=== PATIENT | male | born 2000 | race Caucasian/White ===

== ENCOUNTER 2022-06-29 10:35 | Inpatient (IN) | payer MEDICARE, MEDICAID ==
[~2022-06-29] VITALS: Ht 175.3 cm; Wt 79.5 kg
[2022-06-29] MEDS ORDERED: traZODone 50 MG TAB PO PRN (15:25)
[2022-06-29] MEDS ORDERED: hydrOXYzine 50 MG TAB PO PRN (15:25)
[2022-06-29] MEDS ORDERED: ACETAMINOPHEN TAB 650MG DOSE (2X325MG) PO PRN (15:25)
[2022-06-29] MEDS ORDERED: MOM 30ML SUSPENSION UDC PO PRN (15:25)
[2022-06-29] MEDS ORDERED: MAALOX 30 ML SUSP *UDC PO PRN (15:25)
[2022-06-29] MEDS ORDERED: MOME0.1O3 TOP (15:59)
[2022-06-29] MEDS ORDERED: TRIA25CR TOP (15:59)
[2022-06-29] MEDS ORDERED: KETO2CR TOP (15:59)
[2022-06-29] MEDS ORDERED: CLOB0.057 TOP (16:02)
[2022-06-29] MEDS ORDERED: CLIN1LOT TOP (16:02)
[2022-06-29 16:25] VITALS: BP 119/70
[2022-06-29 16:25] LABS: RSV AMPLIFICATION NEGATIVE (NEGATIVE)
[2022-06-29 21:54] LABS: BASO % 0.3 % (0.0-1.0); EOS # 0.1 10^3/uL (0.0-0.5); EOS % 0.8 % (0.0-3.0); HEMATOCRIT 40.5 % (42.0-52.0); HEMOGLOBIN 13.5 g/dl (13.5-17.5); LYMPH # 2.9 10^3/uL (1.5-5.0); LYMPH % 28.1 % (24.0-44.0); MEAN CORPUSCULAR HEMOGLOBIN 28.7 pg (27.0-33.0); MEAN CORPUSCULAR HGB CONC 33.3 g/dl (32.0-36.5); MEAN CORPUSCULAR VOLUME 86.2 fl (80.0-96.0); MONO # 0.6 10^3/uL (0.0-0.8); MONO % 5.6 % (2.0-8.0); NEUTROPHILS # 6.6 10^3/uL (1.5-8.5); NEUTROPHILS % 64.9 % (36.0-66.0); PLATELET COUNT, AUTOMATED 285 10^3/uL (150-450); WHITE BLOOD COUNT 10.1 10^3/uL (4.0-10.0)
[2022-06-29] MEDS ORDERED: DICYCLOMINE 10 MG CAP PO PRN (22:00)
[2022-06-29] MEDS ORDERED: GI COCKTAIL 50ML BTL(HYOSCYAMINE/MAALOX/LIDOCAINE VISCOUS)(1:3:1) PO ONE (22:00)
[2022-06-29 22:14] LABS: LIPASE 40 U/L (12-53)
[2022-06-29 22:16] LABS: BLOOD UREA NITROGEN 15 MG/DL (9-23); CALCIUM LEVEL 9.6 MG/DL (8.5-10.1); CARBON DIOXIDE LEVEL 28 MMOL/L (20-31); CHLORIDE LEVEL 106 MMOL/L (98-107); CREATININE FOR GFR 0.75 MG/DL (0.70-1.30); GLOMERULAR FILTRATION RATE > 60.0 (>60); GLUCOSE, FASTING 91 MG/DL (60-100); POTASSIUM SERUM 4.2 MMOL/L (3.5-5.1); SODIUM LEVEL 141 MMOL/L (136-145)
[2022-06-30 06:42] VITALS: BP 112/66
[2022-06-30] MEDS ORDERED: INFLUENZA QUADRIVALENT PF VACCINE 0.5ML SYRINGE IM.IMMUN ONE (10:00)
[2022-06-30] MEDS ORDERED: GI COCKTAIL 50ML BTL(HYOSCYAMINE/MAALOX/LIDOCAINE VISCOUS)(1:3:1) PO ONE (11:00)
[2022-06-30] MEDS: DULoxetine 20MG CAP (CYMBALTA) PO SCH (16:04)
[2022-06-30] MEDS ORDERED: DESI13CR2 TOP (17:47)
[2022-06-30] MEDS ORDERED: BENZ10LI12 TOP (17:47)
[2022-06-30] MEDS ORDERED: KETO2SHA8 TOP (17:47)
[2022-06-30 18:18] VITALS: BP 112/66
[2022-06-30] MEDS ORDERED: HOME MED LIST COMPLETE! XX SCH (18:45)
[2022-07-01 06:39] VITALS: BP 97/56
[2022-07-01] MEDS: DULoxetine 20MG CAP (CYMBALTA) PO SCH (09:46)
[2022-07-01] MEDS: DICLOFENAC EPOLAMINE 1.3% PATCH TOP SCH ×2 (12:03→21:00)
[2022-07-01 17:49] VITALS: BP 116/74
[2022-07-02 07:02] VITALS: BP 130/81
[2022-07-02] MEDS: DICLOFENAC EPOLAMINE 1.3% PATCH TOP SCH ×2 (08:10→21:00)
[2022-07-02] MEDS: DULoxetine 20MG CAP (CYMBALTA) PO SCH (08:10)
[2022-07-02] MEDS ORDERED: ONDANSETRON 4MG TAB PO PRN (08:30)
[2022-07-02] MEDS ORDERED: CLOBETASOL PROP 0.05% OINT 30 GM TOP PRN (08:40)
[2022-07-02] MEDS ORDERED: TRIAMCINOLONE ACETONIDE 0.025% 80GM CREAM TOP PRN (08:45)
[2022-07-02] MEDS: CLINDAMYCIN TOP 1% SOLN 60ML BTL TOP SCH ×2 (09:00→21:00)
[2022-07-02] MEDS: DIAPER RELIEF PASTE (DESITIN) 60GM TOP SCH (09:00)
[2022-07-02 18:00] VITALS: BP 142/78
[2022-07-02 21:20] VITALS: BP 142/78
[2022-07-03 06:17] VITALS: BP 101/60
[2022-07-03] MEDS: DICLOFENAC EPOLAMINE 1.3% PATCH TOP SCH ×2 (07:56→21:00)
[2022-07-03] MEDS: DIAPER RELIEF PASTE (DESITIN) 60GM TOP SCH (07:58)
[2022-07-03] MEDS: CLINDAMYCIN TOP 1% SOLN 60ML BTL TOP SCH ×2 (07:58→21:00)
[2022-07-03] MEDS: DULoxetine 20MG CAP (CYMBALTA) PO SCH (07:58)
[2022-07-03 16:22] VITALS: BP 125/68
[2022-07-04 07:05] VITALS: BP 118/81
[2022-07-04] MEDS: DIAPER RELIEF PASTE (DESITIN) 60GM TOP SCH (07:57)
[2022-07-04] MEDS: CLINDAMYCIN TOP 1% SOLN 60ML BTL TOP SCH (07:57)
[2022-07-04] MEDS: DICLOFENAC EPOLAMINE 1.3% PATCH TOP SCH (07:58)
[2022-07-04] MEDS: DULoxetine 20MG CAP (CYMBALTA) PO SCH (07:59)
[2022-07-04] MEDS ORDERED: CYMB1CAP4 PO (10:53)
[2022-07-04] MEDS ORDERED: HYDR50TA70 PO (10:53)
[2022-07-04] MEDS ORDERED: ABIL1TAB11 PO (10:53)
[2022-07-04] MEDS ORDERED: ONDA-83 PO (10:53)
[2022-07-04] MEDS ORDERED: DICY1CAP8 PO (10:53)
== END 2022-07-04 13:04 | disposition home or self-care (01) | DRG 885 ==
LOC: M ED 10:35 → M ED INP 15:21 → M PSY 16:20
PROVIDERS: ADMIT Psychiatry & Neurology Psychiatry; ATTEND Psychiatry & Neurology Psychiatry
DX: F31.81 Bipolar II disorder (principal); R45.851 Suicidal ideations; F41.9 Anxiety disorder, unspecified; F60.3 Borderline personality disorder; F90.9 Attention-deficit hyperactivity disorder, unspecified type; F64.9 Gender identity disorder, unspecified; Z59.9 Problem related to housing and economic circumstances, unspecified; Z79.899 Other long term (current) drug therapy; E11.9 Type 2 diabetes mellitus without complications; K76.0 Fatty (change of) liver, not elsewhere classified; J45.909 Unspecified asthma, uncomplicated; G43.909 Migraine, unspecified, not intractable, without status migrainosus; M79.7 Fibromyalgia; L40.8 Other psoriasis

== ENCOUNTER → 2023-08-07 | Outpatient (REF) | payer OTHER ==
[~2023-08-07] MED LIST: ABIL1TAB11 PO; BENZ10LI12 TOP; CLIN1LOT TOP; CLOB0.057 TOP; CYMB1CAP4 PO; DESI13CR2 TOP; DICY1CAP8 PO; HYDR50TA70 PO; KETO2CR TOP; KETO2SHA8 TOP; MOME0.1O3 TOP; ONDA-83 PO; TRIA25CR TOP
[2023-08-07 15:57] LABS: FERRITIN 29.8 NG/ML (10.5-307.3)
[2023-08-07 15:59] LABS: PERCENT SATURATION 15.7 % (19.7-50.0)
== END ==
LOC: M LAB REF 13:51
PROVIDERS: ATTEND Nurse Practitioner Family
DX: Z98.84 Bariatric surgery status (principal)

== ENCOUNTER 2023-08-29 16:56 | Emergency (ER) | payer MEDICARE, OTHER ==
[~2023-08-29] VITALS: Ht 170.2 cm; Wt 70.9 kg
[2023-08-29] MEDS: LIDOCAINE W/EPINEPHRINE 1% 20ML VIAL SC ONE (19:15)
[2023-08-29] MEDS: BOOSTRIX VACCINE (TETANUS/DIPHTH/ACEL. PERTUSSIS) 0.5ML SYR IM.IMMUN ONE (19:21)
[2023-08-29 19:52] VITALS: BP 117/69; TEMP 98.4; O2SAT 99
[2023-08-29] MEDS: BACITRACIN OINTMENT 30GM TUBE TOP ONE (20:14)
== END 2023-08-29 20:19 | disposition home or self-care (01) ==
LOC: EDSEX → EDBD 16:56 → M ED 16:56
DX: S81.812A Laceration without foreign body, left lower leg, initial encounter (principal); W26.0XXA Contact with knife, initial encounter; Y92.009 Unspecified place in unspecified non-institutional (private) residence as the place of occurrence of the external cause; Y93.89 Activity, other specified; Y99.9 Unspecified external cause status; Z23 Encounter for immunization

== ENCOUNTER 2023-09-06 14:17 | Inpatient (IN) | payer OTHER, MEDICARE ==
[~2023-09-06] VITALS: Ht 170.2 cm; Wt 67.4 kg
[2023-09-06] MEDS ORDERED: ISOVUE-370 76% 100ML VIAL As Ordered ONE (14:38)
[2023-09-06 14:50] LABS: BASO % 0.4 % (0.0-1.0); EOS % 0.7 % (0.0-3.0); HEMATOCRIT 37.2 % (42.0-52.0); HEMOGLOBIN 12.5 g/dl (13.5-17.5); LYMPH # 1.6 10^3/uL (1.5-5.0); LYMPH % 28.7 % (24.0-44.0); MEAN CORPUSCULAR HGB CONC 33.6 g/dl (32.0-36.5); MEAN CORPUSCULAR VOLUME 89.2 fl (80.0-96.0); MONO # 0.3 10^3/uL (0.0-0.8); NEUTROPHILS # 3.7 10^3/uL (1.5-8.5); PLATELET COUNT, AUTOMATED 253 10^3/uL (150-450); RED BLOOD COUNT 4.17 10^6/uL (4.30-6.10); WHITE BLOOD COUNT 5.6 10^3/uL (4.0-10.0)
[2023-09-06 15:03] LABS: INR 1.17; PARTIAL THROMBOPLASTIN TIME 27.1 SECONDS (24.8-34.2); PROTHROMBIN TIME 14.5 SECONDS (12.5-14.5)
[2023-09-06] MEDS: ONDANSETRON 4MG 2ML VIAL IV ONE (16:07)
[2023-09-06 16:20] LABS: ALBUMIN 4.3 G/DL (3.2-5.2); ALKALINE PHOSPHATASE 65 U/L (46-116); ALT/SGPT 52 U/L (7.0-40); AST/SGOT 53 U/L (<34); BILIRUBIN,DIRECT 0.2 MG/DL (<0.4); BILIRUBIN,TOTAL 0.8 MG/DL (0.3-1.2); BLOOD UREA NITROGEN 8 MG/DL (9-23); CALCIUM LEVEL 8.5 MG/DL (8.5-10.1); CARBON DIOXIDE LEVEL 27 MMOL/L (20-31); CHLORIDE LEVEL 103 MMOL/L (98-107); CK-MB VALUE MASS < 1.0 NG/ML (<3.6); CPK CREATINE PHOSPHOKINASE 138 U/L (46-171); CREATININE FOR GFR 0.69 MG/DL (0.70-1.30); FREE T4 1.25 NG/DL (0.89-1.76); GLOMERULAR FILTRATION RATE > 60.0 (>60); GLUCOSE, FASTING 81 MG/DL (60-100); MB/CK RELATIVE INDEX 0.72 (< OR =4); POTASSIUM SERUM 5.5 MMOL/L (3.5-5.1); SODIUM LEVEL 136 MMOL/L (136-145); THYROID STIMULATING HORMONE 0.697 uIU/ML (0.55-4.78); TOTAL PROTEIN 6.8 G/DL (5.7-8.2)
[2023-09-06 16:40] LABS: RSV AMPLIFICATION NEGATIVE (NEGATIVE)
[2023-09-06] MEDS: ASPIRIN 325 MG TAB PO ONE (18:03)
[2023-09-06] MEDS ORDERED: MOM 30ML SUSPENSION UDC PO PRN (18:25)
[2023-09-06] MEDS ORDERED: HOME MED LIST COMPLETE! XX SCH (18:45)
[2023-09-06 19:22] LABS: C REACTIVE PROTEIN QUANTITATIV < 0.40 MG/DL (<1.0)
[2023-09-06 19:24] LABS: CHOLESTEROL LEVEL 133 MG/DL (<200); CHOLESTEROL RISK RATIO 2.85 (<5); HDL CHOLESTEROL 46.6 MG/DL (>40); LDL CHOLESTEROL 73.8 MG/DL (<100); NON-HDL-C 86.4 MG/DL; TRIGLYCERIDES LEVEL 63 MG/DL (<150)
[2023-09-06 19:43] LABS: INR 1.2; PARTIAL THROMBOPLASTIN TIME 28.4 SECONDS (24.8-34.2); PROTHROMBIN TIME 14.9 SECONDS (12.5-14.5)
[2023-09-06 21:17] VITALS: BP 121/64; TEMP 97.5; O2SAT 96
[2023-09-06] MEDS: ENOXAPARIN 40MG/0.4ML SYRINGE (J1650 PER 10MG) SC SCH (21:50)
[2023-09-06] MEDS: DOCUSATE SODIUM 100MG CAPSULE PO SCH (21:50)
[2023-09-07 02:06] VITALS: BP 104/60; TEMP 97.9; O2SAT 99
[2023-09-07 05:57] VITALS: BP 106/60; TEMP 97.7; O2SAT 100
[2023-09-07 06:59] LABS: HEMATOCRIT 37.2 % (36.0-47.0); HEMOGLOBIN 12.5 g/dl (12.0-15.5); MEAN CORPUSCULAR HEMOGLOBIN 30.1 pg (27.0-33.0); MEAN CORPUSCULAR HGB CONC 33.6 g/dl (32.0-36.5); MEAN CORPUSCULAR VOLUME 89.6 fl (80.0-96.0); PLATELET COUNT, AUTOMATED 224 10^3/uL (150-450); RED BLOOD COUNT 4.15 10^6/uL (4.00-5.40)
[2023-09-07 07:21] LABS: BLOOD UREA NITROGEN 11 MG/DL (9-23); CALCIUM LEVEL 9.5 MG/DL (8.5-10.1); CARBON DIOXIDE LEVEL 30 MMOL/L (20-31); CHLORIDE LEVEL 105 MMOL/L (98-107); CREATININE FOR GFR 0.83 MG/DL (0.55-1.30); GLOMERULAR FILTRATION RATE > 60.0 (>60); GLUCOSE, FASTING 77 MG/DL (60-100); POTASSIUM SERUM 3.6 MMOL/L (3.5-5.1); SODIUM LEVEL 141 MMOL/L (136-145)
[2023-09-07] MEDS: ASPIRIN 81MG CHEW TABLET PO SCH (08:06)
[2023-09-07] MEDS: INFLUENZA QUADRIVALENT PF VACCINE 0.5ML SYRINGE IM.IMMUN ONE (12:24)
[2023-09-07 14:00] VITALS: BP 113/69; TEMP 97.9; O2SAT 96
[2023-09-07 14:29] LABS: HEMOGLOBIN A1c 4.8 % (4.0-6.0)
[2023-09-07 20:50] VITALS: BP 111/67; TEMP 98.4; O2SAT 96
[2023-09-08 05:10] VITALS: BP 106/64; TEMP 97.5; O2SAT 96
[2023-09-08] MEDS ORDERED: ASPI81CH8 PO (10:09)
== END 2023-09-08 11:18 | disposition home or self-care (01) | DRG 69 ==
LOC: EDBD 14:17 → EDSEX 14:17 → M ED 14:17 → M ED INP 18:31 → ENRESERV 19:48 → M MSPAV 21:19
PROVIDERS: ADMIT Student in an Organized Health Care Education/Training Program; ATTEND Student in an Organized Health Care Education/Training Program
DX: G45.9 Transient cerebral ischemic attack, unspecified (principal); R91.8 Other nonspecific abnormal finding of lung field; M99.53 Intervertebral disc stenosis of neural canal of lumbar region; J44.9 Chronic obstructive pulmonary disease, unspecified; J45.909 Unspecified asthma, uncomplicated; M79.7 Fibromyalgia; E03.9 Hypothyroidism, unspecified; F32.A Depression, unspecified; E11.9 Type 2 diabetes mellitus without complications; L40.8 Other psoriasis; G43.909 Migraine, unspecified, not intractable, without status migrainosus; H40.9 Unspecified glaucoma; K76.0 Fatty (change of) liver, not elsewhere classified; Z88.6 Allergy status to analgesic agent; F41.9 Anxiety disorder, unspecified; E28.2 Polycystic ovarian syndrome; F12.90 Cannabis use, unspecified, uncomplicated

== ENCOUNTER 2023-09-11 22:13 | Inpatient (IN) | payer MEDICARE, OTHER ==
[~2023-09-11] VITALS: Ht 177.8 cm; Wt 71.4 kg
[~2023-09-11 22:13] MED LIST changes: +ASPI81CH8 PO
[2023-09-11 22:41] VITALS: BP 111/65; TEMP 98.1; O2SAT 96
[2023-09-11 22:52] LABS: BASO % 0.6 % (0.0-1.0); EOS # 0.1 10^3/uL (0.0-0.5); EOS % 0.9 % (0.0-3.0); HEMATOCRIT 34.6 % (36.0-47.0); HEMOGLOBIN 11.8 g/dl (12.0-15.5); LYMPH # 2.9 10^3/uL (1.5-5.0); LYMPH % 44.1 % (24.0-44.0); MEAN CORPUSCULAR HEMOGLOBIN 29.6 pg (27.0-33.0); MEAN CORPUSCULAR HGB CONC 34.1 g/dl (32.0-36.5); MEAN CORPUSCULAR VOLUME 86.7 fl (80.0-96.0); MONO # 0.5 10^3/uL (0.0-0.8); MONO % 7.1 % (2.0-8.0); NEUTROPHILS # 3.1 10^3/uL (1.5-8.5); PLATELET COUNT, AUTOMATED 242 10^3/uL (150-450); RED BLOOD COUNT 3.99 10^6/uL (4.00-5.40); WHITE BLOOD COUNT 6.6 10^3/uL (4.0-10.0)
[2023-09-11 23:05] LABS: INR 1.23; PARTIAL THROMBOPLASTIN TIME 29.4 SECONDS (24.8-34.2); PROTHROMBIN TIME 15.1 SECONDS (12.5-14.5)
[2023-09-11] MEDS ORDERED: ISOVUE-370 76% 100ML VIAL As Ordered ONE (23:11)
[2023-09-11 23:12] LABS: CK-MB VALUE MASS < 1.0 NG/ML (<3.6)
[2023-09-11 23:14] LABS: CPK CREATINE PHOSPHOKINASE 85 U/L (34-145); MB/CK RELATIVE INDEX 1.17 (< OR =4)
[2023-09-11 23:15] LABS: ALBUMIN 4.4 G/DL (3.2-5.2); ALKALINE PHOSPHATASE 78 U/L (46-116); ALT/SGPT 33 U/L (7.0-40); AST/SGOT 21 U/L (<34); BILIRUBIN,DIRECT 0.3 MG/DL (<0.4); BILIRUBIN,TOTAL 0.7 MG/DL (0.3-1.2); BLOOD UREA NITROGEN 13 MG/DL (9-23); CARBON DIOXIDE LEVEL 24 MMOL/L (20-31); CHLORIDE LEVEL 110 MMOL/L (98-107); CREATININE FOR GFR 0.76 MG/DL (0.55-1.30); GLOMERULAR FILTRATION RATE > 60.0 (>60); GLUCOSE, FASTING 78 MG/DL (60-100); MAGNESIUM LEVEL 2.1 MG/DL (1.8-2.4); POTASSIUM SERUM 3.1 MMOL/L (3.5-5.1); RSV AMPLIFICATION NEGATIVE (NEGATIVE); SODIUM LEVEL 139 MMOL/L (136-145); TOTAL PROTEIN 6.7 G/DL (5.7-8.2)
[2023-09-11 23:17] LABS: FREE T4 1.26 NG/DL (0.89-1.76); THYROID STIMULATING HORMONE 1.341 uIU/ML (0.55-4.78)
[2023-09-12] MEDS: levETIRAcetam INJection 500 MG in D5W MINI-BAG PLUS 100 ML IV ONE (00:09)
[2023-09-12] MEDS: NS 1,000 ML IV ONE (00:09)
[2023-09-12 00:21] LABS: ETHYL ALCOHOL (ETHANOL) 0.005 % (0.000-0.010)
[2023-09-12 00:23] LABS: SALICYLATE LEVEL < 3.0 MG/DL (<30)
[2023-09-12] MEDS: KCL 10MEQ/100ML SWI (KRUN) 10 MEQ in IV 1 EA IV SCH (00:28)
[2023-09-12] MEDS ORDERED: HOME MED LIST COMPLETE! XX SCH (01:30)
[2023-09-12] MEDS ORDERED: DEXTROSE 50% 50ML SYRINGE IV PRN (02:40)
[2023-09-12] MEDS ORDERED: GLUCOSE 4GM CHEW TABLET PO PRN (02:40)
[2023-09-12] MEDS ORDERED: GLUCAGON INJ 1MG VIAL SC PRN (02:40)
[2023-09-12 03:19] LABS: RHEUMATOID FACTOR QUANT 5.5 IU/ML (<14)
[2023-09-12 03:20] LABS: PROLACTIN 10.57 NG/ML
[2023-09-12 04:08] LABS: HEMOGLOBIN A1c 4.7 % (4.0-6.0)
[2023-09-12 05:43] VITALS: BP 120/74; TEMP 97.3; O2SAT 100
[2023-09-12 07:10] LABS: ALBUMIN 4.4 G/DL (3.2-5.2); ALKALINE PHOSPHATASE 79 U/L (46-116); ALT/SGPT 32 U/L (7.0-40); AST/SGOT 16 U/L (<34); BILIRUBIN,TOTAL 0.8 MG/DL (0.3-1.2); BLOOD UREA NITROGEN 11 MG/DL (9-23); CALCIUM LEVEL 8.7 MG/DL (8.5-10.1); CARBON DIOXIDE LEVEL 25 MMOL/L (20-31); CHLORIDE LEVEL 108 MMOL/L (98-107); CREATININE FOR GFR 0.63 MG/DL (0.55-1.30); GLOMERULAR FILTRATION RATE > 60.0 (>60); GLUCOSE, FASTING 68 MG/DL (60-100); MAGNESIUM LEVEL 2.1 MG/DL (1.8-2.4); POTASSIUM SERUM 3.9 MMOL/L (3.5-5.1); SODIUM LEVEL 142 MMOL/L (136-145); TOTAL PROTEIN 6.7 G/DL (5.7-8.2)
[2023-09-12] MEDS ORDERED: INSULIN LISPRO (NovoLOG) PER UNIT SC SCH ×2 (07:30→21:00)
[2023-09-12 07:38] LABS: AMPHETAMINES LEVEL URINE NEGATIVE (NEGATIVE); BARBITURATES URINE NEGATIVE (NEGATIVE); BENZODIAZEPINES URINE NEGATIVE (NEGATIVE); COCAINE METABOLITE URINE NEGATIVE (NEGATIVE); METHADONE URINE NEGATIVE (NEGATIVE); OPIATES URINE NEGATIVE (NEGATIVE); PHENCYCLIDINE URINE NEGATIVE (NEGATIVE)
[2023-09-12 07:41] LABS: CANNABINOIDS URINE POSITIVE (NEGATIVE)
[2023-09-12] MEDS: ENOXAPARIN 40MG/0.4ML SYRINGE (J1650 PER 10MG) SC SCH (09:00)
[2023-09-12 16:00] VITALS: BP 117/72
[2023-09-12 16:01] VITALS: BP_SYST 101; BP_SYST 171; BP_DIAS 68; BP_DIAS 73
[2023-09-12] MEDS: METOCLOPRAMIDE 5 MG TAB PO SCH (16:33)
[2023-09-12 16:59] LABS: IRON (FE) 44 UG/DL (50-170)
[2023-09-12 17:00] LABS: PERCENT SATURATION 12.9 % (13.2-45.0); TOTAL IRON BINDING CAPACITY 342 UG/DL (250-425)
[2023-09-12 17:01] LABS: FOLATE > 24.00 NG/ML (>5.4)
[2023-09-12 17:02] LABS: FERRITIN 49.9 NG/ML (7.3-270.7); VITAMIN B12 LEVEL 441 PG/ML (211-911)
[2023-09-12] MEDS: PANTOPRAZOLE 40MG TAB (PROTONIX) PO SCH (20:15)
[2023-09-12 20:17] VITALS: BP 106/71; TEMP 97.7; O2SAT 94; O2SAT 99
[2023-09-12 22:00] VITALS: BP_SYST 113; BP_SYST 114; BP_SYST 117; BP_DIAS 65; BP_DIAS 66; BP_DIAS 71
[2023-09-13 06:00] VITALS: BP_SYST 105; BP_SYST 115; BP_SYST 117; BP_DIAS 61; BP_DIAS 67; BP_DIAS 68; TEMP 98; O2SAT 99
[2023-09-13 06:42] LABS: BLOOD UREA NITROGEN 15 MG/DL (9-23); CALCIUM LEVEL 9.6 MG/DL (8.5-10.1); CARBON DIOXIDE LEVEL 29 MMOL/L (20-31); CHLORIDE LEVEL 107 MMOL/L (98-107); CREATININE FOR GFR 0.74 MG/DL (0.55-1.30); GLOMERULAR FILTRATION RATE > 60.0 (>60); GLUCOSE, FASTING 78 MG/DL (60-100); POTASSIUM SERUM 3.8 MMOL/L (3.5-5.1); SODIUM LEVEL 142 MMOL/L (136-145)
[2023-09-13] MEDS ORDERED: E-Z-PAQUE 96% w/w SUSP 176GM BTL As Ordered ONE (08:13)
[2023-09-13] MEDS ORDERED: E-Z-HD 98% w/w 340GM SUSP BTL As Ordered ONE (08:13)
[2023-09-13 14:00] VITALS: BP 135/85; TEMP 98.6; O2SAT 98
[2023-09-13 14:11] LABS: ANTINUCLEAR ANTIBODIES DIRECT Negative (Negative)
[2023-09-13] MEDS: MOM 30ML SUSPENSION UDC PO ONE (16:58)
[2023-09-13 19:28] VITALS: BP 132/73; O2SAT 99
[2023-09-13 20:00] VITALS: BP 118/57; TEMP 97.7; O2SAT 97
[2023-09-13 20:10] LABS: BASO % 0.6 % (0.0-1.0); EOS # 0.1 10^3/uL (0.0-0.5); EOS % 1.2 % (0.0-3.0); HEMATOCRIT 35.6 % (36.0-47.0); HEMOGLOBIN 12.4 g/dl (12.0-15.5); LYMPH # 2.1 10^3/uL (1.5-5.0); LYMPH % 31.4 % (24.0-44.0); MEAN CORPUSCULAR HEMOGLOBIN 30.5 pg (27.0-33.0); MEAN CORPUSCULAR HGB CONC 34.8 g/dl (32.0-36.5); MEAN CORPUSCULAR VOLUME 87.7 fl (80.0-96.0); MONO # 0.3 10^3/uL (0.0-0.8); MONO % 4.4 % (2.0-8.0); NEUTROPHILS # 4.1 10^3/uL (1.5-8.5); NEUTROPHILS % 62.1 % (36.0-66.0); PLATELET COUNT, AUTOMATED 264 10^3/uL (150-450); RED BLOOD COUNT 4.06 10^6/uL (4.00-5.40); WHITE BLOOD COUNT 6.7 10^3/uL (4.0-10.0)
[2023-09-13 20:33] LABS: CK-MB VALUE MASS < 1.0 NG/ML (<3.6)
[2023-09-13 20:35] LABS: BLOOD UREA NITROGEN 14 MG/DL (9-23); CARBON DIOXIDE LEVEL 28 MMOL/L (20-31); CHLORIDE LEVEL 108 MMOL/L (98-107); CPK CREATINE PHOSPHOKINASE 56 U/L (34-145); CREATININE FOR GFR 0.66 MG/DL (0.55-1.30); GLOMERULAR FILTRATION RATE > 60.0 (>60); GLUCOSE, FASTING 153 MG/DL (60-100); MAGNESIUM LEVEL 2.1 MG/DL (1.8-2.4); MB/CK RELATIVE INDEX 1.78 (< OR =4); SODIUM LEVEL 142 MMOL/L (136-145)
[2023-09-13] MEDS: FERROUS SULFATE 325MG TAB PO SCH (20:45)
[2023-09-13] MEDS: DOCUSATE SODIUM 100MG CAPSULE PO SCH (20:45)
[2023-09-13] MEDS: MAALOX 30 ML SUSP *UDC PO ONE (20:50)
[2023-09-14 00:33] LABS: CK-MB VALUE MASS < 1.0 NG/ML (<3.6)
[2023-09-14 00:34] LABS: CPK CREATINE PHOSPHOKINASE 53 U/L (34-145); MB/CK RELATIVE INDEX 1.88 (< OR =4)
[2023-09-14 06:00] VITALS: BP 100/62; TEMP 97.9; O2SAT 100
[2023-09-14] MEDS ORDERED: PANT40TA29 PO (10:51)
[2023-09-14] MEDS ORDERED: METO5TAB2 PO (10:51)
[2023-09-14] MEDS ORDERED: COLA100C5 PO (10:51)
[2023-09-14] MEDS ORDERED: FERR325T3 PO (10:51)
== END 2023-09-14 11:46 | disposition home or self-care (01) | DRG 312 ==
LOC: M ED 22:13 → M ED INP 09-12 02:39 → ENRESERV 09-12 03:46 → M MSPAV 09-12 05:28
PROVIDERS: ADMIT Internal Medicine; ATTEND Internal Medicine Nephrology
DX: I95.1 Orthostatic hypotension (principal); E87.5 Hyperkalemia; G43.909 Migraine, unspecified, not intractable, without status migrainosus; M79.7 Fibromyalgia; F90.9 Attention-deficit hyperactivity disorder, unspecified type; F31.9 Bipolar disorder, unspecified; F60.3 Borderline personality disorder; F41.9 Anxiety disorder, unspecified; E11.9 Type 2 diabetes mellitus without complications; K58.9 Irritable bowel syndrome, unspecified; L40.9 Psoriasis, unspecified; E07.9 Disorder of thyroid, unspecified; M54.9 Dorsalgia, unspecified; G89.29 Other chronic pain; R26.89 Other abnormalities of gait and mobility; R11.0 Nausea; H40.9 Unspecified glaucoma; F64.9 Gender identity disorder, unspecified; J44.9 Chronic obstructive pulmonary disease, unspecified; J45.909 Unspecified asthma, uncomplicated; K76.0 Fatty (change of) liver, not elsewhere classified; E28.2 Polycystic ovarian syndrome; Z90.79 Acquired absence of other genital organ(s); Z90.49 Acquired absence of other specified parts of digestive tract; Z98.84 Bariatric surgery status; Z88.6 Allergy status to analgesic agent; Z88.8 Allergy status to other drugs, medicaments and biological substances; Z11.52 Encounter for screening for COVID-19

== ENCOUNTER → 2023-10-17 | Outpatient (REF) | payer MEDICARE ==
[~2023-10-17] MED LIST changes: +COLA100C5 PO; +FERR325T3 PO; +METO5TAB2 PO; +PANT40TA29 PO
[2023-10-17 18:17] LABS: PERCENT SATURATION 17.3 % (13.2-45.0)
[2023-10-17 18:21] LABS: FERRITIN 39.5 NG/ML (7.3-270.7)
== END ==
LOC: M LAB REF 16:31
PROVIDERS: ATTEND Nurse Practitioner Family
DX: R53.83 Other fatigue (principal); D50.9 Iron deficiency anemia, unspecified

== ENCOUNTER 2023-10-19 17:03 | Emergency (ER) | payer MEDICARE ==
[~2023-10-19] VITALS: Ht 170.2 cm; Wt 68.8 kg
[2023-10-19] MEDS ORDERED: ECOT81TA5 PO (17:10)
[2023-10-19 20:30] VITALS: TEMP 98.6
[2023-10-19 21:00] VITALS: O2SAT 98
[2023-10-19 21:15] VITALS: BP 103/59
== END 2023-10-19 21:36 | disposition left against medical advice (07) ==
LOC: M ED 17:03
DX: R50.9 Fever, unspecified (principal); R05.9 Cough, unspecified; Z53.20 Procedure and treatment not carried out because of patient's decision for unspecified reasons; Z88.6 Allergy status to analgesic agent; J44.9 Chronic obstructive pulmonary disease, unspecified; Z98.84 Bariatric surgery status; Z90.49 Acquired absence of other specified parts of digestive tract; Z11.52 Encounter for screening for COVID-19

== ENCOUNTER → 2023-11-13 | Outpatient (REF) | payer MEDICARE ==
[~2023-11-13] MED LIST changes: +ECOT81TA5 PO
[2023-11-16 01:07] LABS: D001-IgE D pteronyssinus <0.10 kU/L (Class 0); E001-IgE Cat Epith/Dander < 0.10 kU/L (Class 0); E005-IgE Dog Dander < 0.10 kU/L (Class 0); G002-IgE Bermuda Grass < 0.10 kU/L (Class 0); M001-IgE Penicillium chrysogen < 0.10 kU/L (Class 0); M002 IgE Cladosporium herbaru < 0.10 kU/L (Class 0); M003 IgE Aspergillus fumigatu < 0.10 kU/L (Class 0); M006-IgE Alternaria alternata < 0.10 kU/L (Class 0); T001-IgE Maple/Box Elder < 0.10 kU/L (Class 0); T003-IgE Common Silver Birch < 0.10 kU/L (Class 0); T006-IgE Cedar, Mountain < 0.10 kU/L (Class 0); T007-IgE Oak, White < 0.10 kU/L (Class 0); T008-IgE Elm, American < 0.10 kU/L (Class 0); T015-IgE Ash, White < 0.10 kU/L (Class 0); T070-IgE White Mulberry < 0.10 kU/L (Class 0); W001-IgE Ragweed, Short < 0.10 kU/L (Class 0); W018-IgE Sheep Sorrel < 0.10 kU/L (Class 0)
== END ==
LOC: M LAB REF 12:05
PROVIDERS: ATTEND Nurse Practitioner Family
DX: J45.30 Mild persistent asthma, uncomplicated (principal)

== ENCOUNTER → 2023-11-15 | Outpatient (CLI) | payer MEDICARE | LOC: M RAD 12:49 | PROVIDERS: ATTEND Internal Medicine Critical Care Medicine | DX: R91.8 Other nonspecific abnormal finding of lung field (principal) ==

== ENCOUNTER → 2023-11-27 | Outpatient (CLI) | payer MEDICARE ==
[2023-11-27 15:35] LABS: IMMUNOGLOBULIN A 102.3 MG/DL (40-350); IMMUNOGLOBULIN G 827 MG/DL (650-1600)
[2023-11-27 15:55] LABS: HEPATITIS B SURFACE ANTIGEN NEGATIVE (NEGATIVE)
[2023-11-27 16:08] LABS: HIV 1&2 SCREEN NEGATIVE (NEGATIVE)
[2023-11-27 18:49] LABS: IMMUNOGLOBULIN E 9.2 IU/ML (0-378)
== END ==
LOC: M PLALAB 12:55
PROVIDERS: ATTEND Internal Medicine Infectious Disease
DX: A31.0 Pulmonary mycobacterial infection (principal); R91.8 Other nonspecific abnormal finding of lung field; Z11.59 Encounter for screening for other viral diseases; Z72.89 Other problems related to lifestyle

== ENCOUNTER 2024-01-09 08:28 | Observation (INO) | payer MEDICARE, OTHER ==
[2024-01-09] VITALS (7 sets, daily range): BP systolic 107–122; BP diastolic 62–73; TEMP 97.5–97.9; O2SAT 94–96
[~2024-01-09] VITALS: Ht 172.7 cm; Wt 68.5 kg
[~2024-01-09 08:28] MED LIST changes: +ALBU10.7 INH; +ALBU2.5V10; +ALBU8.5H; +LEXA1TAB PO
[2024-01-09] MEDS ORDERED: LR 1,000 ML IV SCH (09:10)
[2024-01-09] MEDS: CETACAINE SPRAY 5GM As Ordered ONE (11:12)
[2024-01-09] MEDS ORDERED: MIDAZOLAM INJ 2MG/2ML VIAL As Ordered ONE (11:13)
[2024-01-09] MEDS ORDERED: ONDANSETRON 4MG 2ML VIAL As Ordered ONE (11:13)
[2024-01-09] MEDS ORDERED: LIDOCAINE 2% 100MG/5ML SDV (FOR ANES.) As Ordered ONE (11:22)
[2024-01-09] MEDS ORDERED: ROCURONIUM BROMIDE 50MG/5ML VIAL As Ordered ONE (11:22)
[2024-01-09] MEDS ORDERED: propofoL 200 MG/20 ML VIAL As Ordered ONE (11:22)
[2024-01-09] MEDS ORDERED: SUGAMMADEX SODIUM 500 MG/5 ML VIAL (BRIDION) As Ordered ONE (11:22)
[2024-01-09] MEDS ORDERED: fentaNYL 100 MCG/2 ML INJECTION As Ordered ONE (11:24)
[2024-01-09] MEDS ORDERED: fentaNYL 100 MCG/2 ML INJECTION IV PRN (11:35)
[2024-01-09] MEDS ORDERED: oxyCODONE 5MG TAB PO PRN (11:35)
[2024-01-09] MEDS ORDERED: ONDANSETRON 4MG 2ML VIAL IV PRN (11:35)
[2024-01-09] MEDS: LR 1,000 ML IV SCH (11:35)
[2024-01-09] MEDS: EPINEPHrine 1MG/10ML SYRINGE 1.5IN As Ordered ONE (11:43)
[2024-01-09] MEDS ORDERED: GLUCOSE 4 GM CHEW PO PRN (12:50)
[2024-01-09] MEDS ORDERED: DEXTROSE 50% 50ML SYRINGE IV PRN (12:50)
[2024-01-09] MEDS ORDERED: GLUCAGON INJ 1MG VIAL SC PRN (12:50)
[2024-01-09 14:07] LABS: BASO % 0.3 % (0.0-1.0); EOS % 0.1 % (0.0-3.0); HEMOGLOBIN 11.5 g/dl (12.0-15.5); LYMPH # 0.9 10^3/uL (1.5-5.0); LYMPH % 12.7 % (24.0-44.0); MEAN CORPUSCULAR HEMOGLOBIN 30.5 pg (27.0-33.0); MEAN CORPUSCULAR HGB CONC 33.8 g/dl (32.0-36.5); MEAN CORPUSCULAR VOLUME 90.2 fl (80.0-96.0); MONO # 0.1 10^3/uL (0.0-0.8); MONO % 1.4 % (2.0-8.0); NEUTROPHILS % 85.2 % (36.0-66.0); PLATELET COUNT, AUTOMATED 215 10^3/uL (150-450); RED BLOOD COUNT 3.77 10^6/uL (4.00-5.40); WHITE BLOOD COUNT 7.1 10^3/uL (4.0-10.0)
[2024-01-09] MEDS ORDERED: HOME MED LIST COMPLETE! XX SCH (14:20)
[2024-01-09] MEDS ORDERED: IPRATROPIUM 0.5MG/ALBUTEROL 2.5MG INH SOL UD 3ML (DUONEB) NEB PRN (14:30)
[2024-01-09 14:43] LABS: BLOOD UREA NITROGEN 13 MG/DL (9-23); CALCIUM LEVEL 9.2 MG/DL (8.5-10.1); CARBON DIOXIDE LEVEL 28 MMOL/L (20-31); CHLORIDE LEVEL 109 MMOL/L (98-107); CREATININE FOR GFR 0.55 MG/DL (0.55-1.30); GLOMERULAR FILTRATION RATE > 60.0 (>60); GLUCOSE, FASTING 114 MG/DL (60-100); POTASSIUM SERUM 3.6 MMOL/L (3.5-5.1); SODIUM LEVEL 143 MMOL/L (136-145)
[2024-01-09] MEDS: INSULIN LISPRO (NovoLOG) PER UNIT SC SCH ×2 (18:08→21:00)
[2024-01-10 00:03] VITALS: BP 109/62; TEMP 97.2; O2SAT 95
[2024-01-10 04:07] VITALS: BP 91/55; TEMP 97.2; O2SAT 97
[2024-01-10 04:34] VITALS: BP 98/60
[2024-01-10 08:11] VITALS: BP 93/51; TEMP 97.2; O2SAT 98
[2024-01-10 08:58] VITALS: BP 110/62
[2024-01-10] MEDS: PANTOPRAZOLE 40MG TAB (PROTONIX) PO SCH (09:00)
[2024-01-10] MEDS: FERROUS SULFATE 325MG TAB PO SCH (09:00)
[2024-01-10] MEDS: ESCITALOPRAM OXALATE 10 MG TAB (LEXAPRO) PO SCH (09:00)
== END 2024-01-10 11:40 | disposition home or self-care (01) ==
LOC: M SDC 08:28 → M ED INP 08:29 → EEVIPCON 10:30 → EDSEX 10:30 → M MS5PR 13:30
PROVIDERS: ADMIT Internal Medicine Pulmonary Disease; ATTEND Student in an Organized Health Care Education/Training Program
DX: R91.8 Other nonspecific abnormal finding of lung field (principal); J45.30 Mild persistent asthma, uncomplicated; F31.9 Bipolar disorder, unspecified; F64.0 Transsexualism; E28.2 Polycystic ovarian syndrome; F32.A Depression, unspecified; L40.9 Psoriasis, unspecified; D50.9 Iron deficiency anemia, unspecified; K21.9 Gastro-esophageal reflux disease without esophagitis; Z98.84 Bariatric surgery status; Z88.8 Allergy status to other drugs, medicaments and biological substances; Z88.1 Allergy status to other antibiotic agents; F12.10 Cannabis abuse, uncomplicated; F90.9 Attention-deficit hyperactivity disorder, unspecified type
CPT/HCPCS: 31624; 31628; 36415; 71045; 76000; 80048; 83735; 85025; 87070; 87102; 87116; 87205; 87206; 88305; G0378; J1100; J1815; J2250; J2405; J3010

== ENCOUNTER → 2024-01-21 | Outpatient (CLI) | payer MEDICARE, OTHER ==
[2024-01-21 11:13] LABS: BASO % 0.5 % (0.0-1.0); EOS # 0.1 10^3/uL (0.0-0.5); EOS % 0.9 % (0.0-3.0); HEMATOCRIT 38.8 % (36.0-47.0); HEMOGLOBIN 13.1 g/dl (12.0-15.5); LYMPH % 31.2 % (24.0-44.0); MEAN CORPUSCULAR HEMOGLOBIN 30.4 pg (27.0-33.0); MEAN CORPUSCULAR HGB CONC 33.8 g/dl (32.0-36.5); MONO # 0.3 10^3/uL (0.0-0.8); MONO % 4.7 % (2.0-8.0); NEUTROPHILS % 62.4 % (36.0-66.0); PLATELET COUNT, AUTOMATED 267 10^3/uL (150-450); RED BLOOD COUNT 4.31 10^6/uL (4.00-5.40); WHITE BLOOD COUNT 6.4 10^3/uL (4.0-10.0)
[2024-01-21 11:26] LABS: HEMOGLOBIN A1c 4.8 % (4.0-6.0)
[2024-01-21 11:37] LABS: TOTAL IRON BINDING CAPACITY 367 UG/DL (250-425)
[2024-01-21 11:38] LABS: ALBUMIN 4.3 G/DL (3.2-5.2); ALKALINE PHOSPHATASE 78 U/L (46-116); ALT/SGPT 35 U/L (7.0-40); AST/SGOT 12 U/L (<34); BILIRUBIN,TOTAL 0.5 MG/DL (0.3-1.2); BLOOD UREA NITROGEN 15 MG/DL (9-23); CALCIUM LEVEL 9.6 MG/DL (8.5-10.1); CARBON DIOXIDE LEVEL 28 MMOL/L (20-31); CHLORIDE LEVEL 109 MMOL/L (98-107); CHOLESTEROL LEVEL 135 MG/DL (<200); CHOLESTEROL RISK RATIO 2.55 (<5); GLOMERULAR FILTRATION RATE > 60.0 (>60); GLUCOSE, FASTING 84 MG/DL (60-100); HDL CHOLESTEROL 52.9 MG/DL (>40); IRON (FE) 85 UG/DL (50-170); LDL CHOLESTEROL 69.7 MG/DL (<100); NON-HDL-C 82.1 MG/DL; PERCENT SATURATION 23.2 % (13.2-45.0); SODIUM LEVEL 142 MMOL/L (136-145); TOTAL PROTEIN 6.8 G/DL (5.7-8.2); TRIGLYCERIDES LEVEL 62 MG/DL (<150)
[2024-01-21 11:41] LABS: FERRITIN 33.2 NG/ML (7.3-270.7); THYROID STIMULATING HORMONE 0.871 uIU/ML (0.55-4.78); TOTAL 25(OH) VITAMIN D 24.6 NG/ML (20.0-100.0)
[2024-01-21 11:42] LABS: FOLATE 18.3 NG/ML (>5.4); VITAMIN B12 LEVEL 357 PG/ML (211-911)
== END ==
LOC: M LAB 09:51
PROVIDERS: ATTEND Nurse Practitioner Family
DX: E11.9 Type 2 diabetes mellitus without complications (principal); E61.1 Iron deficiency; Z98.84 Bariatric surgery status; Z79.899 Other long term (current) drug therapy

== ENCOUNTER → 2024-01-29 | Outpatient (REF) | payer MEDICARE, OTHER ==
[2024-01-30 13:56] LABS: MAGNESIUM LEVEL 2.2 MG/DL (1.8-2.4)
[2024-01-30 14:00] LABS: TOTAL 25(OH) VITAMIN D 23.4 NG/ML (20.0-100.0)
[2024-01-31 08:22] LABS: C-PEPTIDE 2.01 ng/mL (0.80-3.85)
[2024-01-31 08:26] LABS: INSULIN LEVEL 8.6 uIU/mL (<=18.4)
== END ==
LOC: M LAB REF 13:03
PROVIDERS: ATTEND Family Medicine Addiction Medicine
DX: E11.69 Type 2 diabetes mellitus with other specified complication (principal); Z98.84 Bariatric surgery status; Z79.899 Other long term (current) drug therapy

== ENCOUNTER 2024-03-07 14:39 | Emergency (ER) | payer MEDICARE, OTHER ==
[~2024-03-07] VITALS: Ht 175.3 cm; Wt 67.2 kg
[~2024-03-07 14:39] MED LIST changes: +BLOO-217; +METO5TAB2; +SYMB80INH
[2024-03-07 15:03] VITALS: TEMP 97
[2024-03-07] MEDS ORDERED: ISOVUE-370 76% 100ML VIAL As Ordered ONE (15:21)
[2024-03-07 15:28] LABS: BASO % 0.4 % (0.0-1.0); EOS # 0.1 10^3/uL (0.0-0.5); EOS % 0.7 % (0.0-3.0); HEMATOCRIT 35.8 % (42.0-52.0); LYMPH % 29.1 % (24.0-44.0); MEAN CORPUSCULAR HEMOGLOBIN 30.2 pg (27.0-33.0); MEAN CORPUSCULAR HGB CONC 33.5 g/dl (32.0-36.5); MEAN CORPUSCULAR VOLUME 89.9 fl (80.0-96.0); MONO # 0.4 10^3/uL (0.0-0.8); MONO % 5.6 % (2.0-8.0); NEUTROPHILS # 4.4 10^3/uL (1.5-8.5); NEUTROPHILS % 63.8 % (36.0-66.0); PLATELET COUNT, AUTOMATED 247 10^3/uL (150-450); RED BLOOD COUNT 3.98 10^6/uL (4.30-6.10); WHITE BLOOD COUNT 6.9 10^3/uL (4.0-10.0)
[2024-03-07 15:46] LABS: INR 1.14; PROTHROMBIN TIME 14.2 SECONDS (12.5-14.5)
[2024-03-07 16:08] LABS: PARTIAL THROMBOPLASTIN TIME 20.8 SECONDS (24.8-34.2)
[2024-03-07 16:27] LABS: HCG, SERUM QUALITATIVE NEGATIVE
[2024-03-07] MEDS: fentaNYL 100 MCG/2 ML INJECTION IV ONE (17:01)
[2024-03-07] MEDS ORDERED: INSULIN LISPRO (NovoLOG) PER UNIT SC SCH ×2 (17:30→21:00)
[2024-03-07] MEDS ORDERED: MORPHINE 30 MG TAB **MSIR PO PRN (17:50)
[2024-03-07] MEDS ORDERED: DEXTROSE 50% 50ML SYRINGE IV PRN (17:50)
[2024-03-07] MEDS ORDERED: GLUCOSE 4 GM CHEW PO PRN (17:50)
[2024-03-07] MEDS ORDERED: NALOXONE INJ 0.4MG/1ML VIAL IV PRN (17:50)
[2024-03-07] MEDS ORDERED: GLUCAGON INJ 1MG VIAL SC PRN (17:50)
[2024-03-07 17:54] VITALS: O2SAT 96
[2024-03-07] MEDS ORDERED: MIRALAX *UNIT DOSE* 17GM PACKET PO PRN (17:55)
[2024-03-07] MEDS ORDERED: ALBUTEROL 90 MCG/ACT 8GM HFA INHALER INH PRN (17:55)
[2024-03-07] MEDS ORDERED: ONDANSETRON 4MG 2ML VIAL IV PRN (17:55)
[2024-03-07] MEDS ORDERED: SENOKOT S TAB PO PRN (17:55)
[2024-03-07] MEDS ORDERED: MOM 30ML SUSPENSION UDC PO PRN (17:55)
[2024-03-07 18:00] VITALS: BP 116/58
[2024-03-07] MEDS ORDERED: SYMBICORT 80/4.5MCG INHALER 6GM INH SCH (20:00)
[2024-03-07] MEDS ORDERED: ACETAMINOPHEN 500 MG TAB PO SCH (21:00)
[2024-03-07] MEDS ORDERED: MORPHINE 15 MG SA TAB PO SCH (21:00)
[2024-03-08] MEDS ORDERED: FERROUS SULFATE 325MG TAB PO SCH (09:00)
[2024-03-08] MEDS ORDERED: PANTOPRAZOLE 40MG TAB (PROTONIX) PO SCH (09:00)
[2024-03-08] MEDS ORDERED: ESCITALOPRAM OXALATE 10 MG TAB (LEXAPRO) PO SCH (09:00)
== END 2024-03-07 18:53 | disposition left against medical advice (07) ==
LOC: M ED 14:39 → UNDOADMIN 17:47 → M ED INP 17:47 → CANBEDREQ 18:28 → UNDODISIN 18:53
DX: S70.01XA Contusion of right hip, initial encounter (principal); V00.848A Other accident with standing micro-mobility pedestrian conveyance, initial encounter; Y92.480 Sidewalk as the place of occurrence of the external cause; Y93.9 Activity, unspecified; Y99.9 Unspecified external cause status; Z98.84 Bariatric surgery status; Z79.899 Other long term (current) drug therapy; Z88.6 Allergy status to analgesic agent; Z88.1 Allergy status to other antibiotic agents; Z88.8 Allergy status to other drugs, medicaments and biological substances; Z53.9 Procedure and treatment not carried out, unspecified reason
CPT/HCPCS: 70450; 72125; 73502; 73552; 73564; 74177; 80047; 84703; 85025; 85610; 85730; 93041; 94760; 99285; J3010; Q9967

== ENCOUNTER → 2024-03-10 | Outpatient (REF) | payer MEDICARE | LOC: M LAB REF 16:19 | PROVIDERS: ATTEND Physician Assistant | DX: E87.5 Hyperkalemia (principal) ==

== ENCOUNTER → 2024-03-19 | Outpatient (CLI) | payer MEDICARE | LOC: M WUC 12:44 | PROVIDERS: ATTEND Physician Assistant | DX: M25.531 Pain in right wrist (principal); V00.841A Fall from standing electric scooter, initial encounter ==

== ENCOUNTER → 2024-04-07 | Outpatient (CLI) | payer MEDICARE, OTHER ==
[2024-04-07 18:36] LABS: BASO % 0.4 % (0.0-1.0); EOS # 0.2 10^3/uL (0.0-0.5); EOS % 1.8 % (0.0-3.0); HEMATOCRIT 38.8 % (42.0-52.0); HEMOGLOBIN 12.3 g/dl (13.5-17.5); LYMPH # 1.9 10^3/uL (1.5-5.0); LYMPH % 21.3 % (24.0-44.0); MEAN CORPUSCULAR HEMOGLOBIN 29.8 pg (27.0-33.0); MEAN CORPUSCULAR HGB CONC 31.7 g/dl (32.0-36.5); MEAN CORPUSCULAR VOLUME 93.9 fl (80.0-96.0); MONO # 0.7 10^3/uL (0.0-0.8); MONO % 7.7 % (2.0-8.0); NEUTROPHILS # 6.2 10^3/uL (1.5-8.5); NEUTROPHILS % 68.5 % (36.0-66.0); PLATELET COUNT, AUTOMATED 341 10^3/uL (150-450); RED BLOOD COUNT 4.13 10^6/uL (4.30-6.10); WHITE BLOOD COUNT 9.1 10^3/uL (4.0-10.0)
[2024-04-07 18:40] LABS: C REACTIVE PROTEIN QUANTITATIV < 0.40 MG/DL (<1.0)
[2024-04-07 18:41] LABS: ALBUMIN 4.3 G/DL (3.2-5.2); ALKALINE PHOSPHATASE 96 U/L (46-116); ALT/SGPT 29 U/L (7.0-40); AST/SGOT 14 U/L (<34); BILIRUBIN,TOTAL 0.3 MG/DL (0.3-1.2); BLOOD UREA NITROGEN 10 MG/DL (9-23); CALCIUM LEVEL 9.4 MG/DL (8.5-10.1); CARBON DIOXIDE LEVEL 30 MMOL/L (20-31); CHLORIDE LEVEL 106 MMOL/L (98-107); CREATININE FOR GFR 0.63 MG/DL (0.70-1.30); GLOMERULAR FILTRATION RATE > 60.0 (>60); GLUCOSE, FASTING 70 MG/DL (60-100); POTASSIUM SERUM 3.9 MMOL/L (3.5-5.1); SODIUM LEVEL 141 MMOL/L (136-145); TOTAL PROTEIN 7.3 G/DL (5.7-8.2)
[2024-04-07 18:42] LABS: ERYTHROCYTE SEDIMENTATION RATE 15 mm/hr (0-15)
[2024-04-07 18:47] LABS: HEPATITIS B SURFACE ANTIBODY POSITIVE (POSITIVE)
== END ==
LOC: M PLALAB 14:06
PROVIDERS: ATTEND Internal Medicine Infectious Disease
DX: A31.0 Pulmonary mycobacterial infection (principal); Z23 Encounter for immunization; Z11.59 Encounter for screening for other viral diseases

== ENCOUNTER → 2024-06-13 | Outpatient (REF) | payer MEDICARE, OTHER ==
[2024-06-13 19:27] LABS: CORTISOL AM 8.4 UG/DL (4.3-22.4)
[2024-06-13 19:32] LABS: TESTOSTERONE 18 NG/DL (241-827)
[2024-06-13 19:34] LABS: ALBUMIN 4.8 G/DL (3.2-5.2); ALKALINE PHOSPHATASE 98 U/L (40-129); ALT/SGPT 36 U/L (7.0-40); AST/SGOT 26 U/L (<34); BILIRUBIN,TOTAL 0.6 MG/DL (0.3-1.2); BLOOD UREA NITROGEN 18 MG/DL (9-23); CALCIUM LEVEL 10.4 MG/DL (8.5-10.1); CARBON DIOXIDE LEVEL 28 MMOL/L (20-31); CHLORIDE LEVEL 106 MMOL/L (98-107); CHOLESTEROL LEVEL 167 MG/DL (<200); CHOLESTEROL RISK RATIO 3.05 (<5); GLOMERULAR FILTRATION RATE > 60.0 (>60); GLUCOSE, FASTING 89 MG/DL (60-100); HDL CHOLESTEROL 54.7 MG/DL (>40); LDL CHOLESTEROL 100.3 MG/DL (<100); NON-HDL-C 112.3 MG/DL; POTASSIUM SERUM 5.7 MMOL/L (3.5-5.1); SODIUM LEVEL 142 MMOL/L (136-145); TOTAL PROTEIN 7.7 G/DL (5.7-8.2); TRIGLYCERIDES LEVEL 60 MG/DL (<150)
== END ==
LOC: M LAB REF 16:23
PROVIDERS: ATTEND Physician Assistant
DX: E11.69 Type 2 diabetes mellitus with other specified complication (principal); E16.2 Hypoglycemia, unspecified

== ENCOUNTER → 2024-11-04 | Outpatient (CLI) | payer MEDICARE, OTHER ==
[~2024-11-04] MED LIST changes: +KETO120S5 TOP; -KETO2SHA8 TOP; -TRIA25CR TOP; +TRIA80CR15 TOP
== END ==
LOC: M PLAIMG 10:22
PROVIDERS: ATTEND Internal Medicine Infectious Disease
DX: A31.0 Pulmonary mycobacterial infection (principal)

== ENCOUNTER → 2025-03-09 | Outpatient (CLI) | payer MEDICARE, OTHER | LOC: M WUC 14:44 | PROVIDERS: ATTEND Pediatrics | DX: E16.2 Hypoglycemia, unspecified (principal) ==

== ENCOUNTER 2025-03-15 17:57 | Emergency (ER) | payer MEDICARE, OTHER ==
[~2025-03-15] VITALS: Ht 170.2 cm; Wt 68.2 kg
[2025-03-15 18:01] VITALS: TEMP 97.5
[2025-03-15] MEDS ORDERED: NYST0.1C (18:08)
[2025-03-15] MEDS ORDERED: VALA1TAB5 (18:08)
[2025-03-15 18:32] LABS: PLATELET COUNT, AUTOMATED 320 10^3/uL (150-450)
[2025-03-15] MEDS: diphenhydrAMINE 50 MG/ML VIAL IV ONE (18:48)
[2025-03-15 19:04] LABS: CALCIUM LEVEL 10.2 MG/DL (8.5-10.1); CARBON DIOXIDE LEVEL 30 MMOL/L (20-31); CHLORIDE LEVEL 101 MMOL/L (98-107); CREATININE FOR GFR 0.73 MG/DL (0.70-1.30); GLOMERULAR FILTRATION RATE > 90.0 (>60); POTASSIUM SERUM 4.1 MMOL/L (3.5-5.1); SODIUM LEVEL 142 MMOL/L (136-145)
[2025-03-15] MEDS ORDERED: ISOVUE-370 76% 100 ML VIAL As Ordered ONE (19:30)
[2025-03-15 19:39] VITALS: BP 121/79
[2025-03-15] MEDS ORDERED: PRED10TA2 PO (20:32)
[2025-03-15] MEDS ORDERED: DIPH50CA31 PO (20:32)
[2025-03-15 21:00] VITALS: O2SAT 96
== END 2025-03-15 21:25 | disposition home or self-care (01) ==
LOC: M ED 17:57
DX: R22.0 Localized swelling, mass and lump, head (principal); T37.5X5A Adverse effect of antiviral drugs, initial encounter; F31.9 Bipolar disorder, unspecified; F90.9 Attention-deficit hyperactivity disorder, unspecified type; F60.3 Borderline personality disorder; K58.9 Irritable bowel syndrome, unspecified; K21.9 Gastro-esophageal reflux disease without esophagitis; J45.909 Unspecified asthma, uncomplicated; E11.9 Type 2 diabetes mellitus without complications; Z98.84 Bariatric surgery status; Z88.6 Allergy status to analgesic agent; Z88.8 Allergy status to other drugs, medicaments and biological substances; Z79.52 Long term (current) use of systemic steroids; Z79.899 Other long term (current) drug therapy
CPT/HCPCS: 70491; 80048; 85027; 93041; 94760; 96374; 99284; J1200; J2919; Q9967

== ENCOUNTER → 2025-04-03 | Outpatient (REF) | payer MEDICARE, OTHER ==
[~2025-04-03] MED LIST changes: +DIPH50CA31 PO; +NYST0.1C; +PRED10TA2 PO; +VALA1TAB5
[2025-04-03 13:52] LABS: ALT/SGPT 32.0 U/L (7.0-40); AST/SGOT 20.0 U/L (<34)
[2025-04-03 13:55] LABS: FREE T4 1.16 NG/DL (0.89-1.76)
== END ==
LOC: M LAB REF 12:46
PROVIDERS: ATTEND Pediatrics
DX: R79.89 Other specified abnormal findings of blood chemistry (principal); R74.8 Abnormal levels of other serum enzymes; Z79.899 Other long term (current) drug therapy

== ENCOUNTER → 2025-04-10 | Outpatient (CLI) | payer MEDICARE, OTHER | LOC: M RAD 13:25 | PROVIDERS: ATTEND Pediatrics | DX: E04.1 Nontoxic single thyroid nodule (principal) ==

== ENCOUNTER → 2025-04-28 | Outpatient (REF) | payer MEDICARE, OTHER | LOC: M LAB REF 16:48 | PROVIDERS: ATTEND Physician Assistant | DX: J02.9 Acute pharyngitis, unspecified (principal) ==